=== PATIENT | female | born 1965 | race Caucasian/White ===

== ENCOUNTER 2018-07-28 07:31 | Day surgery (SDC) | payer BC ==
[~2018-07-28 07:31] MED LIST: DIPHENHYDRAMINE HCL 50 MG/ML VIAL ONE; EPINEPHRINE INJ 1 MG/10 ML DISP.SYRIN ONE; FLUMAZENIL INJ 0.5 MG/5 ML VIAL ONE; GLUCAGON,HUMAN RECOMB 1 MG INJ ONE; NALOXONE HCL INJ/PF 0.4 MG/1 ML SDV ONE; ONDANSETRON HCL INJ/PF 4 MG/2 ML SDV ONE
[2018-07-28] MEDS: MIDAZOLAM 2 MG/2 ML INJ ONE ×3 (08:07→08:15)
[2018-07-28] MEDS: FENTANYL CITRATE INJ/PF 100 MCG/2 ML AMPUL ONE ×3 (08:09→08:13)
--- NOTE | 2018-07-28 08:23 | Operative Report ---
Operative Report DATE OF SURGERY: 07/28/18 Operative Report: The risks benefits and alternatives of the procedure explained to the patient in detail and informed consent is obtained.A GIF Olympus video scope was inserted into the patient's mouth and hypopharynx, the esophagus is identified intubated and insufflated ,the scope was then advanced through the esophagus stomach and duodenum, retroflexion maneuver is done, the esophagus stomach and first and second portions of the duodenum examined. PREOPERATIVE DIAGNOSIS: Gastroesophageal reflux disease POSTOPERATIVE DIAGNOSIS: Gastritis status post biopsy rule out Helicobacter pylori OPERATION: EGD with biopsy SURGEON: DARIEN BOND ANESTHESIA: Moderate Sedation - 5 mg of Versed, 100 mcg of fentanyl. Conscious sedation monitoring time 30 minutes. TISSUE REMOVED OR ALTERED: As noted above. COMPLICATIONS: None. ESTIMATED BLOOD LOSS: None. INTRAOPERATIVE FINDINGS: As noted above. PROCEDURE: Patient tolerated the procedure well. No immediate postprocedure complications are noted. Patient discharged in good condition. Discharge date 07/28/2018. Discharge diet: Regular. Discharge activity: Regular. 2-3-week follow-up to discuss findings. Patient is instructed to call the office or proceed to the emergency room should there be any further problems or questions. Wait on the pathology.
[2018-07-28 09:36] VITALS: BP 115/77
== END 2018-07-28 09:30 | disposition home or self-care (01) ==
LOC: END 07:31
PROVIDERS: ATTEND Internal Medicine Gastroenterology
DX: K29.50 Unspecified chronic gastritis without bleeding (principal); E03.9 Hypothyroidism, unspecified; Z79.899 Other long term (current) drug therapy; R73.02 Impaired glucose tolerance (oral); E83.119 Hemochromatosis, unspecified
CPT/HCPCS: 43239; 88305 ×2; J2250; J3010; J0171; J1200; J1610; J2310; J2405; J3490

== ENCOUNTER 2020-03-06 06:35 | Day surgery (SDC) | payer BC ==
[2020-03-06] MEDS ORDERED: PROPOFOL INJ 200 MG/20 ML VIAL IV ONE (07:41)
--- NOTE | 2020-03-06 08:11 | Operative Report ---
Operative Report DATE OF SURGERY: 03/06/20 Operative Report: The risk, benefits and alternatives are discussed with the patient in detail Informed consent in obtained the scope is passed via the patient's mouth to intubate the esophagus The stomach and 1st portion of the small intestine are evaluated retroflexion is performed PREOPERATIVE DIAGNOSIS: Dysphagia, gastroesophageal reflux disease POSTOPERATIVE DIAGNOSIS: Slightly increased resistance at the EG junction. Esophagitis status post biopsy. Gastritis status post biopsy. May need manometry study in the future to rule out achalasia OPERATION: EGD with biopsy SURGEON: DARIEN BOND ANESTHESIA: LMAC TISSUE REMOVED OR ALTERED: as noted above COMPLICATIONS: none ESTIMATED BLOOD LOSS: None INTRAOPERATIVE FINDINGS: as noted above PROCEDURE: Patient tolerated his procedure well no post procedure complications date of discharge 03/06/2020 dischage diet is normal discharge activity is normal 2-3 week follow up wait on pathology
[2020-03-06] MEDS ORDERED: SIMETHICONE 80 MG TAB.CHEW ONE (08:29)
[2020-03-06 08:38] VITALS: BP 112/75
== END 2020-03-06 08:50 | disposition home or self-care (01) ==
LOC: END 06:35
PROVIDERS: ATTEND Internal Medicine Gastroenterology
DX: K29.50 Unspecified chronic gastritis without bleeding (principal); K20.9 Esophagitis, unspecified; K21.9 Gastro-esophageal reflux disease without esophagitis; R13.14 Dysphagia, pharyngoesophageal phase; E03.9 Hypothyroidism, unspecified; I49.9 Cardiac arrhythmia, unspecified; R73.02 Impaired glucose tolerance (oral); Z68.27 Body mass index [BMI] 27.0-27.9, adult; Z79.82 Long term (current) use of aspirin; Z79.890 Hormone replacement therapy; Z79.899 Other long term (current) drug therapy
CPT/HCPCS: 43239; 88305 ×2; 00731; J2704; 731